=== PATIENT | male | born 1955 | race Caucasian/White ===

== ENCOUNTER 2020-11-24 11:57 | Day surgery (SDC) | payer MEDICARE, BC ==
[2020-11-19 15:30] LABS: BASOPHILS % (AUTO) 0.4 % (0-1); EOSINOPHILS # (AUTO) 0.4 X10'3 (0-0.9); EOSINOPHILS % (AUTO) 6.9 % (0-6); LYMPHOCYTES # (AUTO) 1.1 X10'3 (1.1-4.8); LYMPHOCYTES % (AUTO) 21.3 % (21-51); MEAN CORPUSCULAR HEMOGLOBIN 28.9 PG (27.0-31.0); MEAN CORPUSCULAR HGB CONC 32.9 g/dL (33.0-36.5); MEAN CORPUSCULAR VOLUME 87.9 FL (78-98); MEAN PLATELET VOLUME 7.9 FL (7.4-10.4); MONOCYTES # (AUTO) 0.5 X10'3 (0-0.9); MONOCYTES % (AUTO) 10.4 % (2-12); NEUTROPHILS # (AUTO) 3.2 X10'3 (1.8-7.7); PRE OP HEMATOCRIT 38.5 % (42.0-52.0); PRE OP HEMOGLOBIN 12.7 g/dL (14.0-17.9); PRE OP PLATELET COUNT 261 X10'3 (140-440); RED BLOOD COUNT 4.39 X10'6 (4.70-6.10); RED CELL DISTRIBUTION WIDTH 14.3 % (11.5-14.5)
[2020-11-19 15:45] LABS: ALBUMIN/GLOBULIN RATIO 1.3 (1.1-1.5); ALKALINE PHOSPHATASE 90 IU/L (46-116); BLOOD UREA NITROGEN 27 MG/DL (7-18); BUN/CREATININE RATIO 23.1 (5.4-32.0); CALCIUM 8.8 MG/DL (8.5-10.1); CHLORIDE 105 MMOL/L (99-107); CREATININE 1.17 MG/DL (0.60-1.10); PRE OP ALT 33 U/L (30-65); PRE OP ANION GAP 9 (8-16); PRE OP AST 19 U/L (10-37); PRE OP BILIRUB, TOTAL 0.3 MG/DL (0.0-1.0); PRE OP GLUCOSE 100 MG/DL (70-104); PRE OP POTASSIUM 4.2 MMOL/L (3.4-5.1); PRE OP SODIUM 141 MMOL/L (135-145); TOTAL PROTEIN 7.2 G/DL (6.4-8.2); eGFR 62 ML/MIN
[~2020-11-24] VITALS: Ht 175.3 cm; Wt 97.1 kg
[~2020-11-24 11:57] MED LIST: CALC-336 PO; CYAN100T47 PO; CYAN500T46 SL; HYDR12.55 PO; IRBE300T18 PO; MULT-1085 PO; MULT-785 PO; NORCO10T PO; clindamycin-Cleocin 900mg/D5W 50 ML IV ONE; famotidine 20mg tablet PO ONE; ringers solution, lacted 1,000 ML IV SCH
[2020-11-24 12:05] VITALS: BP 140/91
[2020-11-24] MEDS ORDERED: LIDOcaine 1% 30ml preserv. free vial ONE (13:04)
[2020-11-24] MEDS ORDERED: BUPIVAcaine/PF 2.5 mg/ml (0.25%) 30ml vial ONE (13:05)
[2020-11-24] MEDS ORDERED: meperidine/PF 25mg/ml syringe IV PRN ×3 (13:50)
[2020-11-24] MEDS ORDERED: morphine 2 MG/ML inj. syringe IV PRN (13:50)
[2020-11-24] MEDS ORDERED: proCHLORperazine 10 MG/2 ml inj IV PRN (13:50)
[2020-11-24] MEDS ORDERED: ondansetron/PF 4mg/2ml inj IV PRN (13:50)
[2020-11-24] MEDS ORDERED: morphine 4 MG/ML inj SYRINge IV PRN (13:50)
[2020-11-24] MEDS ORDERED: ringers solution, lacted 1,000 ML IV SCH (13:50)
[2020-11-24] MEDS ORDERED: glycopyrrolate 0.2mg/ml inj ONE (15:10)
[2020-11-24] MEDS ORDERED: dexamethasone sod phosphate 10mg/ml inj ONE (15:10)
[2020-11-24] MEDS ORDERED: sevoflurane 250ml liquid IH ONE (15:10)
[2020-11-24] MEDS ORDERED: rocuronium 10mg/ml inj IV ONE (15:10)
[2020-11-24] MEDS ORDERED: neostigmine methylsulfate 1 MG/ML 10ml vial ONE (15:10)
[2020-11-24] MEDS ORDERED: fentaNYL/PF 50MCG/1 ML 2ML syringe ONE (15:18)
[2020-11-24] MEDS ORDERED: midazolam 1 mg/ML 2ml injection ONE (15:19)
[2020-11-24] MEDS ORDERED: ondansetron/PF 4mg/2ml inj ONE (15:34)
[2020-11-24] MEDS ORDERED: LIDOcaine 2% (20mg/ml) 5ml vial ONE (16:10)
[2020-11-24] MEDS ORDERED: ketorolac trometh. 30mg/ml inj. ONE (16:10)
[2020-11-24] MEDS ORDERED: propofol inj 20 ML IV ONE (16:10)
--- NOTE | 2020-11-24 16:30 | NUR ---
ADMITTED TO PACU FROM OR ACCOMPANIED BY ANESTHESIA. INTIAL PHYSICAL ASSESSMENT DONE AND RECORDED. REPORT RECEIVED FROM ANESTHESIA.
[2020-11-24 16:35] VITALS: BP 150/100
[2020-11-24] MEDS ORDERED: HYDROcodone/acetaminophen 5mg/325mg tablet PO PRN (16:35)
[2020-11-24] MEDS ORDERED: HYDROcodone/acetaminophen 10/325mg tab PO PRN (16:35)
[2020-11-24 16:40] VITALS: BP 145/80
[2020-11-24 16:50] VITALS: BP 142/92
[2020-11-24 17:00] VITALS: BP 140/80
[2020-11-24 17:10] VITALS: BP 144/88
--- NOTE | 2020-11-24 17:15 | NUR ---
DISCHARGE CRITERIA MET, DISCHARGE INSTRUCTIONS GIVEN, DEMONSTRATES VERBAL UNDERSTANDING. DISCHARGED HOME IN GOOD CONDITION.
== END 2020-11-24 17:15 | disposition home or self-care (01) ==
LOC: PAS 11:57
PROVIDERS: ATTEND Surgery
DX: L02.31 Cutaneous abscess of buttock (principal); L72.0 Epidermal cyst; R22.2 Localized swelling, mass and lump, trunk; I10 Essential (primary) hypertension; E66.01 Morbid (severe) obesity due to excess calories; Z68.32 Body mass index [BMI] 32.0-32.9, adult; Z88.0 Allergy status to penicillin; Z79.899 Other long term (current) drug therapy; Z98.84 Bariatric surgery status; Z98.890 Other specified postprocedural states; Z72.89 Other problems related to lifestyle; Z82.49 Family history of ischemic heart disease and other diseases of the circulatory system
CPT/HCPCS: 11406; 12032; 36415; 80053; 82948; 85025; 87070; 93005; J1100; J1885; J2001; J2250; J2405; J2704; J2710; J3010; J3490; 88304; A4618; A6449; A7000; J7120

== ENCOUNTER 2024-05-29 13:14 | Outpatient (CLI) | payer OTHER ==
[~2024-05-29 13:14] MED LIST changes: -CYAN500T46 SL; -IRBE300T18 PO; +IRBE300T26 PO; -MULT-1085 PO; -NORCO10T PO; -clindamycin-Cleocin 900mg/D5W 50 ML IV ONE; -famotidine 20mg tablet PO ONE; -ringers solution, lacted 1,000 ML IV SCH
[2024-05-29 14:39] LABS: BASOPHILS % (AUTO) 0.3 % (0-1); EOSINOPHILS # (AUTO) 0.3 X10'3 (0-0.9); LYMPHOCYTES # (AUTO) 1.2 X10'3 (1.1-4.8); LYMPHOCYTES % (AUTO) 26.2 % (21-51); MEAN CORPUSCULAR HEMOGLOBIN 29.2 PG (27.0-31.0); MEAN CORPUSCULAR HGB CONC 32.9 g/dL (33.0-36.5); MEAN CORPUSCULAR VOLUME 88.8 FL (78-98); MEAN PLATELET VOLUME 8.3 FL (7.4-10.4); MONOCYTES # (AUTO) 0.5 X10'3 (0-0.9); MONOCYTES % (AUTO) 10.3 % (2-12); NEUTROPHILS # (AUTO) 2.5 X10'3 (1.8-7.7); NEUTROPHILS % (AUTO) 56.2 % (42-75); PRE OP HEMATOCRIT 34.1 % (42.0-52.0); PRE OP HEMOGLOBIN 11.2 g/dL (14.0-17.9); PRE OP PLATELET COUNT 287 X10'3 (140-440); PRE OP WHITE BLOOD COUNT 4.5 10'3 (4.8-10.8); RED BLOOD COUNT 3.84 X10'6 (4.70-6.10); RED CELL DISTRIBUTION WIDTH 14.3 % (11.5-14.5)
[2024-05-29 14:42] LABS: ALBUMIN 4.1 G/DL (3.4-5.0); ALBUMIN/GLOBULIN RATIO 1.2 (1.1-1.5); ALKALINE PHOSPHATASE 104 IU/L (46-116); BLOOD UREA NITROGEN 28 MG/DL (7-18); BUN/CREATININE RATIO 18.3 (10.0-20.0); CALCIUM 8.7 MG/DL (8.5-10.1); CHLORIDE 104 MMOL/L (99-107); CREATININE 1.53 MG/DL (0.60-1.10); PRE OP ALT 25 U/L (30-65); PRE OP ANION GAP 10 (8-16); PRE OP AST 19 U/L (10-37); PRE OP BILIRUB, TOTAL 0.5 MG/DL (0.0-1.0); PRE OP GLUCOSE 109 MG/DL (70-104); PRE OP POTASSIUM 4.3 MMOL/L (3.4-5.1); PRE OP SODIUM 138 MMOL/L (135-145); TOTAL CARBON DIOXIDE 24.1 MMOL/L (24-32); TOTAL PROTEIN 7.5 G/DL (6.4-8.2); eGFR 45 ML/MIN
[2024-05-29] MEDS ORDERED: [UNRECOGNIZED DRUG - OTHER] (17:16)
[2024-05-29] MEDS ORDERED: CYAN25006 SL (17:16)
[2024-05-29] MEDS ORDERED: FOCUS FACTOR (17:16)
[2024-05-29] MEDS ORDERED: [UNRECOGNIZED DRUG - OTHER] (17:16)
[2024-05-29] MEDS ORDERED: FLO0.4C PO (17:16)
[2024-05-29] MEDS ORDERED: [UNRECOGNIZED DRUG - OTHER] (17:16)
== END 2024-05-29 23:59 | disposition home or self-care (01) ==
LOC: LAB 13:14 → EDSTATUS 06-05 14:30
PROVIDERS: ATTEND Orthopaedic Surgery
DX: Z01.812 Encounter for preprocedural laboratory examination (principal); M17.12 Unilateral primary osteoarthritis, left knee
CPT/HCPCS: 36415; 80053; 85025; 87081

== ENCOUNTER 2024-07-17 14:08 | Observation (INO) | payer OTHER ==
[2024-07-11 15:19] LABS: BASOPHILS % (AUTO) 0.5 % (0-1); EOSINOPHILS # (AUTO) 0.4 X10'3 (0-0.9); EOSINOPHILS % (AUTO) 9.6 % (0-6); LYMPHOCYTES # (AUTO) 1.1 X10'3 (1.1-4.8); LYMPHOCYTES % (AUTO) 25.1 % (21-51); MEAN CORPUSCULAR HEMOGLOBIN 29.7 PG (27.0-31.0); MEAN CORPUSCULAR HGB CONC 33.4 g/dL (33.0-36.5); MEAN CORPUSCULAR VOLUME 88.8 FL (78-98); MEAN PLATELET VOLUME 7.7 FL (7.4-10.4); MONOCYTES # (AUTO) 0.5 X10'3 (0-0.9); MONOCYTES % (AUTO) 10.7 % (2-12); NEUTROPHILS # (AUTO) 2.4 X10'3 (1.8-7.7); NEUTROPHILS % (AUTO) 54.1 % (42-75); PRE OP HEMATOCRIT 32.8 % (42.0-52.0); PRE OP PLATELET COUNT 264 X10'3 (140-440); PRE OP WHITE BLOOD COUNT 4.5 10'3 (4.8-10.8); RED BLOOD COUNT 3.69 X10'6 (4.70-6.10); RED CELL DISTRIBUTION WIDTH 14.9 % (11.5-14.5)
[2024-07-11 15:23] LABS: PRE OP HEMOGLOBIN 10.9 g/dL (14.0-17.9)
[2024-07-11 15:39] LABS: ALBUMIN 3.9 G/DL (3.4-5.0); ALBUMIN/GLOBULIN RATIO 1.3 (1.1-1.5); ALKALINE PHOSPHATASE 120 IU/L (46-116); BLOOD UREA NITROGEN 27 MG/DL (7-18); BUN/CREATININE RATIO 17.3 (10.0-20.0); CALCIUM 8.9 MG/DL (8.5-10.1); CHLORIDE 109 MMOL/L (99-107); CREATININE 1.56 MG/DL (0.60-1.10); PRE OP ALT 31 U/L (30-65); PRE OP ANION GAP 7 (8-16); PRE OP AST 25 U/L (10-37); PRE OP BILIRUB, TOTAL 0.4 MG/DL (0.0-1.0); PRE OP GLUCOSE 112 MG/DL (70-104); PRE OP POTASSIUM 4.6 MMOL/L (3.4-5.1); PRE OP SODIUM 140 MMOL/L (135-145); TOTAL CARBON DIOXIDE 24.1 MMOL/L (24-32); eGFR 44 ML/MIN
[~2024-07-17] VITALS: Ht 175.3 cm; Wt 95.6 kg
[2024-07-17] VITALS (26 sets, daily range): BP systolic 92–142; BP diastolic 46–81; PULSE 54–75; RESP 10–18; TEMP 97.2–98.1; O2SAT 97–100
[2024-07-17] MEDS: tranexamic acid 1gm/0.7% sal. 100 ML IV ONE (05:30)
[2024-07-17] MEDS: clindamycin-Cleocin 900mg/D5W 50 ML IV ONE (05:30)
[2024-07-17] MEDS: ROPIVAcaine inj 200 MG, epiNEPHrine inj 0.6 MG, morphine 10mg/ml inj. 5 MG in normal sa... IU ONE (09:20)
[2024-07-17] MEDS: LIDOcaine 1% (10mg/ml) 2ml vial ONE (09:28)
[2024-07-17] MEDS: famotidine 20mg tablet PO ONE (09:31)
[2024-07-17] MEDS: VANCOMYCIN 1,500MG inj. 1,500 MG in normal saline 500ml IV soln 300 ML IV ONE (09:32)
[2024-07-17] MEDS: ringers solution, lacted 1,000 ML IV SCH ×3 (09:33→15:30)
[2024-07-17] MEDS: ROPIVAcaine 0.2%/PF PUMP/bolus 545 ML ADDCANAL SCH (13:55)
[2024-07-17] MEDS: acetaminophen 325mg tablet PO SCH (14:00)
[2024-07-17] MEDS: clindamycin 600mg/D5W 50ml 50 ML IV SCH (14:00)
[~2024-07-17 14:08] MED LIST changes: +BUPIVACAINE/MELOXICAM 14 ML VIAL IL ONE; +BUPIVAcaine/dex-water/PF 7.5 mg/ml 2ml ampul ONE; -CALC-336 PO; -CYAN100T47 PO; +CYAN25006 SL; +FLO0.4C PO; +FOCUS FACTOR PO; +HYDROmorphone inj. 0.5 MG/0.5 ML DISP.SYRIN IV PRN; +MIDAZolam 1mg/ml 10ml vial ONE; -MULT-785 PO; +ROPIVAcaine 0.2% (10 MG/5 ML) BOLUS INJECTION ADDCANAL PRN; +ROPIVAcaine 0.2%/PF PUMP/bolus 545 ML ADDCANAL SCH; +ROPIVAcaine 0.5% (5mg/ml) 30ml vial ONE; +[UNRECOGNIZED DRUG - OTHER] PO; +[UNRECOGNIZED DRUG - OTHER] PO; +[UNRECOGNIZED DRUG - OTHER] PO; +[UNRECOGNIZED DRUG - OTHER] PO; +acetaminophen 325mg tablet PO PRN; +bisacodyl 10mg suppository rectal RC PRN; +diphenhydrAMINE 25mg capsule PO PRN; +fentaNYL/PF 50MCG/1 ML 2ML syringe ONE; +meperidine/PF 25mg/ml syringe IV PRN; +morphine 2 MG/ML inj. syringe IV PRN; +morphine 4 MG/ML inj SYRINge IV PRN; +naloxone 0.4 mg/ml inj IV PRN; +ondansetron/PF 4mg/2ml inj IV PRN; +proCHLORperazine 10 MG/2 ml inj IV PRN; +propofol inj 20 ML IV ONE; +tetracaine 1% (10mg/ml) pres. free inj. ONE; +vancomycin 1,000mg inj ONE
[2024-07-17] MEDS ORDERED: proCHLORperazine 10 MG/2 ml inj IV PRN (15:30)
[2024-07-17] MEDS ORDERED: morphine 4 MG/ML inj SYRINge IV PRN (15:30)
[2024-07-17] MEDS ORDERED: ondansetron/PF 4mg/2ml inj IV PRN (15:30)
[2024-07-17] MEDS ORDERED: morphine 2 MG/ML inj. syringe IV PRN (15:30)
[2024-07-17] MEDS ORDERED: meperidine/PF 25mg/ml syringe IV PRN ×3 (15:30)
[2024-07-17] MEDS: HYDROmorphone 1 mg/ml syringe IV PRN (17:29)
[2024-07-17] MEDS: potassium Cl 20mEq in NS 1,000 ML IV SCH (18:29)
[2024-07-17] MEDS: NORMAL SALINE IV ONE (19:08)
[2024-07-17] MEDS: TRANEXAMIC ACID IV ONE (19:08)
[2024-07-17] MEDS: gabapentin 300mg capsule PO SCH (20:37)
[2024-07-17] MEDS: sennosides 8.6mg tablet PO SCH (20:37)
[2024-07-17] MEDS: oxyCODONE IR 5mg (immed. release) tablet PO PRN (20:38)
[2024-07-17] MEDS: VANCOMYCIN 1GM 200ML H20 (PEG) 200 ML IV SCH (21:35)
[2024-07-18 02:00] VITALS: BP 109/64; PULSE 73; TEMP 98.4; O2SAT 96
[2024-07-18] MEDS: clindamycin 600mg/D5W 50ml 50 ML IV ONE (02:35)
[2024-07-18 06:00] VITALS: BP 110/74; PULSE 61; RESP 16; TEMP 97.7; O2SAT 98
[2024-07-18 07:30] VITALS: RESP 16; O2SAT 98
[2024-07-18] MEDS: aspirin 325mg tablet PO SCH (08:30)
[2024-07-18] MEDS: tamsulosin 0.4mg capsule PO SCH (08:30)
[2024-07-18] MEDS: ondansetron/PF 4mg/2ml inj IV PRN (08:30)
[2024-07-18] MEDS: cyanocobalamin 500mcg tablet PO SCH (08:31)
[2024-07-18] MEDS: losartan 50mg tablet PO SCH (08:32)
[2024-07-18] MEDS: HYDROchlorothiazide 12.5mg capsule PO SCH (08:33)
[2024-07-18 10:00] VITALS: BP 118/63; PULSE 82; RESP 15; TEMP 98.4; O2SAT 94
[2024-07-18] MEDS ORDERED: oxyCODONE IR 5mg (immed. release) tablet PO PRN (11:50)
[2024-07-18] MEDS: magnesium hydroxide 30ml (MOM) UD suspension PO PRN (13:38)
[2024-07-18] MEDS: oxyCODONE IR 5mg (immed. release) tablet PO PRN (13:41)
[2024-07-18 18:30] VITALS: BP 135/80; PULSE 75; RESP 18; TEMP 98.1; O2SAT 96
[2024-07-18 22:00] VITALS: BP 126/73; PULSE 76; RESP 18; TEMP 99.4; O2SAT 96
[2024-07-19] MEDS: oxyCODONE IR 5mg (immed. release) tablet PO ONE (04:55)
[2024-07-19 06:00] VITALS: BP 130/79; PULSE 74; RESP 18; TEMP 98.1; O2SAT 91
[2024-07-19 07:35] VITALS: BP_SYST 74; PULSE 130
[2024-07-19 07:41] LABS: ALBUMIN 3.2 G/DL (3.4-5.0); ANION GAP 9 (8-16); BLOOD UREA NITROGEN 12 MG/DL (7-18); BUN/CREATININE RATIO 9.5 (10.0-20.0); CALCIUM 8.4 MG/DL (8.5-10.1); CHLORIDE 106 MMOL/L (99-107); CREATININE 1.26 MG/DL (0.60-1.10); GLUCOSE 119 MG/DL (70-104); POTASSIUM 4.5 MMOL/L (3.5-5.1); SODIUM 136 MMOL/L (135-145); TOTAL CARBON DIOXIDE 20.8 MMOL/L (24-32); eCRCL 54 ML/MIN; eGFR 56 ML/MIN
[2024-07-19 07:53] LABS: BASOPHILS % (AUTO) 0.1 % (0-1); EOSINOPHILS # (AUTO) 0.4 X10'3 (0-0.9); EOSINOPHILS % (AUTO) 4.6 % (0-6); HEMATOCRIT 32.3 % (42.0-52.0); HEMOGLOBIN 10.7 g/dl (14.0-17.9); LYMPHOCYTES # (AUTO) 0.7 X10'3 (1.1-4.8); LYMPHOCYTES % (AUTO) 8.3 % (21-51); MEAN CORPUSCULAR HEMOGLOBIN 29.5 PG (27.0-31.0); MEAN CORPUSCULAR VOLUME 89.4 FL (78-98); MEAN PLATELET VOLUME 8.4 FL (7.4-10.4); MONOCYTES # (AUTO) 0.8 X10'3 (0-0.9); MONOCYTES % (AUTO) 10.1 % (2-12); NEUTROPHILS # (AUTO) 6.2 X10'3 (1.8-7.7); NEUTROPHILS % (AUTO) 76.9 % (42-75); PLATELET COUNT 248 X10'3 (140-440); RED BLOOD COUNT 3.62 X10'6 (4.70-6.10); RED CELL DISTRIBUTION WIDTH 15.6 % (11.5-14.5); WHITE BLOOD COUNT 8.1 X10'3 (4.5-11.0)
[2024-07-19 08:00] VITALS: RESP 18; O2SAT 97
[2024-07-19] MEDS ORDERED: APIX5TAB3 PO (08:24)
[2024-07-19 12:32] VITALS: RESP 16
[2024-07-19] MEDS: oxyCODONE IR 5mg (immed. release) tablet PO PRN (12:32)
[2024-07-19] MEDS ORDERED: acetaminophen 325mg tablet PO PRN (13:50)
== END 2024-07-19 13:01 | disposition home or self-care (01) ==
LOC: OR 14:08 → ORTHO 4S 14:08 → OR 15:00 → ORTHO 4S 07-18 20:07
PROVIDERS: ADMIT Orthopaedic Surgery; ATTEND Orthopaedic Surgery
DX: M17.12 Unilateral primary osteoarthritis, left knee (principal); G89.18 Other acute postprocedural pain; I10 Essential (primary) hypertension; N40.0 Benign prostatic hyperplasia without lower urinary tract symptoms; Z98.84 Bariatric surgery status; Z79.899 Other long term (current) drug therapy; Z88.0 Allergy status to penicillin
CPT/HCPCS: 27447; 36415; 64447; 73560; 80048; 80053; 82948; 85025; 87081; 96365; 96366; 96367; 96375; 96376; 97110; 97116; 97161; 97530; A6454; C1776; G0378; J1171; J2250; J2405; J2704; J2795; J3010; J3370; J3372; J3480; J3490; J7040; J7120; A4215; A4618; A6258; A7000; C1758; C9250